=== PATIENT | female | born 1990 | race Two or more races ===

== ENCOUNTER 2017-03-19 01:42 | Emergency (ER) | payer OTHER ==
[~2017-03-19] VITALS: Ht 160 cm; Wt 54.4 kg
[2017-03-19 02:08] VITALS: BP 112/61
--- NOTE | 2017-03-19 02:16 | NUR ---
DR. JEAN AT BEDSIDE FOR EVAL.
--- NOTE | 2017-03-19 02:18 | NUR ---
XRAY AT BEDSIDE.
--- NOTE | 2017-03-19 02:50 | NUR ---
DR. JEAN AT BEDSIDE SPEAKING TO PT REGARDING RESULTS.
[2017-03-19] MEDS ORDERED: ACETAMINOPHEN W/ CODEINE#3 1 EA TABLET ONE (02:54)
[2017-03-19] MEDS ORDERED: ACETAMINOPHEN W/ CODEINE#3 1 EA TABLET PO ONE (03:00)
== END 2017-03-19 03:01 | disposition home or self-care (01) ==
LOC: ER 01:58
DX: S92.101A Unspecified fracture of right talus, initial encounter for closed fracture (principal); F10.10 Alcohol abuse, uncomplicated; W18.39XA Other fall on same level, initial encounter; Y93.01 Activity, walking, marching and hiking; Y92.89 Other specified places as the place of occurrence of the external cause; Y99.9 Unspecified external cause status
CPT/HCPCS: 73610-TC; A4606; Z7610